=== PATIENT | male | born 1985 | race Asian ===

== ENCOUNTER 2019-05-23 08:51 | Outpatient (CLI) | payer SELFPAY | END 2019-05-23 08:52 | disposition critical access hospital (66) | LOC: EMS 08:51 | PROVIDERS: ATTEND Surgery | DX: R55 Syncope and collapse (principal); R09.89 Other specified symptoms and signs involving the circulatory and respiratory systems | CPT/HCPCS: A0425; A0427 ==

== ENCOUNTER 2019-05-23 09:14 | Emergency (ER) | payer SELFPAY ==
--- NOTE | 2019-05-23 10:05 | ED Physician Documentation ---
History of Present Illness - Stated complaint Stated Complaint: ALTERED MENTAL STATUS - Chief complaint Chief Complaint: General - History obtained from History obtained from: Patient, EMS - History of Present Illness Timing: Today (Just prior to arrival.) - Treatment prior to arrival Treatment prior to arrival: Narcan 1.2 mg IV. - Additonal information Additional information: The patient is a 33-year-old male who arrives via ambulance after he was reportedly "went unconscious" at work this morning just prior to arrival. He reports having low back pain when he awoke this morning, and so took 30 mg OxyContin tablet that was given to him by a coworker. This was about one and a half hours prior to arrival. He passed out while at work, with no fall or injury. Coworkers called 911. When medics arrived they found the patient to be unresponsive with poor respiratory effort. Narcan 1.2 mg was administered IV, and the patient quickly regained consciousness and respiratory status. He reports feeling normal at this time. He denies history of similar symptoms in the past. 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 Review of Systems Constitutional: denies: Fever Nose: denies: Congestion Throat: denies: Sore throat Cardiac: denies: Chest pain / pressure Respiratory: denies: Dyspnea, Cough GI: denies: Abdominal Pain, Nausea, Vomiting : denies: Dysuria, Incontinent Skin: denies: Rash Musculoskeletal: reports: Back pain (Lower back pain earlier this morning, but not currently.). denies: Extremity pain Neurologic: denies: Focal weakness, Numbness, Headache Psychiatric: denies: Depressed, Suicidal PD PAST MEDICAL HISTORY - Past Medical History Past Medical History: No Cardiovascular: None Respiratory: None Neuro: None Endocrine/Autoimmune: None - Past Surgical History Past Surgical History: No - Allergies Allergies/Adverse Reactions: Allergies Allergy/AdvReac Type Severity Reaction Status Date / Time ibuprofen [From Advil] Allergy Edema Verified 05/23/19 09:20 - Social History Does the pt smoke?: No Smoking Status: Never smoker PD ED PE NORMAL - Vitals Vital signs reviewed: Yes (hypertensive) - General General: Alert and oriented X 3, Well developed/nourished - HEENT HEENT: Atraumatic, PERRL, EOMI, Pharynx benign - Neck Neck: Supple, no meningeal sign, No adenopathy - Cardiac Cardiac: RRR - Respiratory Respiratory: No respiratory distress, Clear bilaterally - Abdomen Abdomen: Soft, Non tender - Back Back: No CVA TTP, No spinal TTP - Derm Derm: No rash - Extremities Extremities: No tenderness to palpate, No edema, No calf tenderness / cord - Neuro Neuro: Alert and oriented X 3, No motor deficit, No sensory deficit Results - Vitals Vitals: Vital Signs - 24 hr 05/23/19 05/23/19 09:58 11:55 Heart Rate 87 93 Respiratory 17 17 Rate Blood Pressure 148/88 H 137/90 H O2 Saturation 97 97 Oxygen O2 Source Room air - EKG (time done) 10:12 Rate: Rate (enter#) (82) Rhythm: NSR, Other (RSR' in V1, consistent with RVH.) Bertram: Normal QRS: LVH Ischemia: T wave inversion (in aVF) Computer interpretation: Agree with computer - Labs Labs: Laboratory Tests 05/23/19 05/23/19 05/23/19 10:04 10:04 11:45 WBC 19.8 H RBC 4.78 Hgb 14.9 Hct 45.2 MCV 94.6 H MCH 31.2 H MCHC 33.0 RDW 13.3 Plt Count 339 MPV 8.6 Neut # (Auto) 16.3 H Lymph # (Auto) 2.0 Woods # (Auto) 1.2 H Eos # (Auto) 0.1 Baso # (Auto) 0.1 Absolute Nucleated RBC 0.00 Nucleated RBC % 0.0 Sodium 139 Potassium 3.9 Chloride 104 Carbon Dioxide 26 Anion Gap 9.0 BUN 12 Creatinine 0.9 Estimated GFR (MDRD) 98 Glucose 136 H Calcium 9.3 Total Bilirubin 0.2 AST 25 ALT 39 Alkaline Phosphatase 70 Total Protein 7.7 Albumin 4.3 Globulin 3.4 Albumin/Globulin Ratio 1.3 Lipase 46 Urine Opiates Screen NEGATIVE Ur Oxycodone Screen NEGATIVE Urine Methadone Screen NEGATIVE Ur Propoxyphene Screen NEGATIVE Ur Barbiturates Screen NEGATIVE Ur Tricyclics Screen NEGATIVE Ur Phencyclidine Scrn NEGATIVE Ur Amphetamine Screen NEGATIVE U Methamphetamines Scrn NEGATIVE U Benzodiazepines Scrn NEGATIVE Urine Cocaine Screen POSITIVE H U Cannabinoids Screen POSITIVE H PD MEDICAL DECISION MAKING - ED course Complexity details: reviewed results, re-evaluated patient, considered differential, d/w patient ED course: The patient's presentation is most consistent with overdose of narcotic medication, with associated somnolence and respiratory depression. The patient's symptoms resolved after administration of Narcan, and he has remained asymptomatic thereafter. His urine tox screen is positive for cocaine and cannabis. His white count is elevated at 19.8. I suspect this is a stress reaction, and there is no clinical evidence to suggest an acute infectious proc ess. I doubt intentional self-harm. The patient was observed in the emergency department for more than 2 hours, during which time he remained asymptomatic. I discussed with him the diagnosis, drug avoidance behavior, as well as potentially worrisome signs or symptoms that should prompt reevaluation in the emergency department. Departure - Departure Disposition: 01 Home, Self Care Clinical Impression: Overdose Qualifiers: Encounter type: initial encounter Injury intent: undetermined intent Qualified Code(s): T50.904A - Poisoning by unspecified drugs, medicaments and biological substances, undetermined, initial encounter Condition: Stable Instructions: ED Overdose Accidental Comments: Avoid taking medications that are not prescribed for you. You can use ibuprofen if needed for back pain. Return to the emergency department if you develop worsening symptoms. Discharge Date/Time: 05/23/19 12:34
[2019-05-23 10:13] LABS: BASOPHILS # (AUTO) 0.1 10^3/uL (0.0-0.1); BASOPHILS % (AUTO) 0.3 %; EOSINOPHILS # (AUTO) 0.1 10^3/uL (0.0-0.7); EOSINOPHILS % (AUTO) 0.4 %; HGB - HEMOGLOBIN 14.9 g/dL (14.0-18.0); LYMPHOCYTES % (AUTO) 9.9 %; MEAN CORPUSCULAR HEMOGLOBIN 31.2 pg (27.0-31.0); MEAN CORPUSCULAR VOLUME 94.6 fL (80.0-94.0); MEAN PLATELET VOLUME 8.6 fL (7.4-11.4); MONOCYTES # (AUTO) 1.2 10^3/uL (0.0-1.0); NEUTROPHILS # (AUTO) 16.3 10^3/uL (1.5-6.6); NEUTROPHILS % (AUTO) 82.4 %; PLT - PLATELET COUNT 339 10^3/uL (130-450); RED BLOOD COUNT 4.78 10^6/uL (4.70-6.10); RED CELL DISTRIBUTION WIDTH 13.3 % (12.0-15.0); WHITE BLOOD COUNT 19.8 x10^3/uL (4.8-10.8)
[2019-05-23 10:23] LABS: ALBUMIN 4.3 g/dL (3.2-5.5); ALBUMIN/GLOBULIN RATIO 1.3 (1.0-2.2); BILIRUBIN,TOTAL 0.2 mg/dL (0.2-1.0); CALCIUM 9.3 mg/dL (8.5-10.3); CREATININE 0.9 mg/dL (0.6-1.2); TOTAL PROTEIN 7.7 g/dL (6.7-8.2)
[2019-05-23 11:55] VITALS: BP 137/90
[2019-05-23 11:59] LABS: MUDS CUTOFF CONCENTRATIONS CUTOFF CONC BELOW:
[2019-05-23 12:09] LABS: AMPHETAMINE SCREEN,URINE NEGATIVE (NEGATIVE); BENZODIAZEPINES SCREEN, URINE NEGATIVE (NEGATIVE); COCAINE SCREEN URINE POSITIVE (NEGATIVE); METHADONE SCREEN, URINE NEGATIVE (NEGATIVE); METHAMPHETAMINES SCREEN, URINE NEGATIVE (NEGATIVE); OPIATE SCREEN, URINE NEGATIVE (NEGATIVE); OXYCODONE SCREEN, URINE NEGATIVE (NEGATIVE); PROPOXYPHENE SCREEN, URINE NEGATIVE (NEGATIVE); TRICYCLIC ANTIDEPRESSANT,URINE NEGATIVE (NEGATIVE)
== END 2019-05-23 12:34 | disposition home or self-care (01) ==
LOC: ED 09:14
DX: T40.2X1A Poisoning by other opioids, accidental (unintentional), initial encounter (principal); R40.0 Somnolence; Y92.89 Other specified places as the place of occurrence of the external cause; F14.90 Cocaine use, unspecified, uncomplicated; F12.90 Cannabis use, unspecified, uncomplicated
CPT/HCPCS: 36415; 80053; 80306; 83690; 85025; 93005; 99284